=== PATIENT | male | born 1960 | race Asian ===

== ENCOUNTER 2020-08-18 20:02 | Emergency (ER) | payer OTHER ==
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
[2020-08-18] MEDS ORDERED: Ondansetron 4 MG Tab.DIS PO ONE (22:05)
[2020-08-18] MEDS ORDERED: Ibuprofen 600 MG Tab PO ONE (22:05)
[2020-08-18] MEDS ORDERED: Ibuprofen 600 MG Tab ONE (22:38)
== END 2020-08-18 23:38 | disposition home or self-care (01) ==
LOC: JD.ED 20:02
DX: S06.0X1A Concussion with loss of consciousness of 30 minutes or less, initial encounter (principal); W50.0XXA Accidental hit or strike by another person, initial encounter; Y93.61 Activity, american tackle football; Y92.213 High school as the place of occurrence of the external cause
CPT/HCPCS: 70450; 72125; 99284; A9270